=== PATIENT | male | born 1990 | race Caucasian/White ===

== ENCOUNTER 2017-03-17 03:06 | Emergency (ER) | payer OTHER ==
[~2017-03-17] VITALS: Ht 188 cm; Wt 88.6 kg
[2017-03-17 03:08] VITALS: BP 120/84; PULSE 82; RESP 16; O2SAT 96
--- NOTE | 2017-03-17 03:33 | ED.REPORT ---
HPI-Extremity Problem Upper Date of Service Mar 17, 2017 ED Provider: Andres Pascual MD A 26 year old male with no pertinent medical history presents to the ED complaining of a puncture wound to his right palm. The pt was jumping over a chain link fence this evening when a sharp piece of the fence punctured his hand. No other trauma is reported. The pt is not up to date on his tetanus. Nursing Notes Stated Complaint: PUNCTURE WOUND TO RIGHT PALM Chief Complaint: Laceration Nursing Notes Reviewed: Yes Allergies: Coded Allergies: No Known Allergies (Unverified , 03/17/17) General Time Seen by MD: 03:32 Chief Complaint Hand injury right Hx Obtained From: Patient Arrived By: Walk-in Onset Occurred: 1 - 4 hours ago Symptom Duration: Since onset Recent Healthcare: No recent doctor visit, No recent hospitalization Similar Sx Previous: No Past Medical History Past Medical History none reported Past Surgical History none reported Smoking History Unknown if Ever Smoker Social History Other Social History: Good social support Ambulatory Status Independent Review of Systems Musculoskeletal: Reports: Extremity pain, Denies: Neck pain Skin: Denies Rash Complete sys rev & neg: except as marked. Respiratory: Denies: Non-productive cough, Shortness of breath Cardiovascular: Denies: Chest pain GI: Denies: Abdominal pain, Vomiting Physical Exam Initial Vital Signs Vital Signs (First) Date Time Temp Pulse Resp B/P Pulse Ox O2 Delivery O2 Flow Rate FiO2 03/17/17 03:08 36.8 82 16 120/84 96 Room Air Initial VS: Reviewed General/Constitutional: Awake, Alert Neck: Atraumatic, Supple, Full range of motion Respiratory / Chest: Atraumatic, Breath sounds NL, Breath sounds = bilat, No respiratory distress Cardiovascular: Heart rate NL, Regular rhythm, Heart sounds NL Upper Extremity / MS: Atraumatic, Full range of motion Wrist / Hand: Neurologic intact, Vascular intact small puncture wound between the thenar and hypothenar eminences hemostatic small flap of skin that pt has debrided under direction Skin: Color NL, No rash, Warm, Dry Neurologic: Oriented X3, Speech NL, No motor deficits, No sensory deficits Head / Eyes: Atraumatic, Normocephalic, PERRL, EOMI ENT: Atraumatic, Airway patent, Mucous membranes moist Abdomen: Atraumatic, Soft, Non-tender Back: Atraumatic, Full range of motion Lower Extremity / Pelvis / MS: Atraumatic, Full range of motion Psychiatric: Affect NL, Mood NL Re-Eval/Medical Decision Med Decision/Clinical Course 26-year-old [employer] sustaining a puncture wound in his palm jumping over a chain-link fence. The wound appears fairly superficial and was cleansed thoroughly. Bacitracin applied. Tetanus updated. Small mehdi of devitalized skin debrided off bluntly. Discharged in stable condition. Re-Evaluation/Progress : Time of Eval: 03:32 Patient Status: Condition improved Re-Evaluation/Progress Note: Pt informed of the diagnosis and plan for admission during the initial interview. The pt understands and agrees with the plan. All questions are addressed at this time. Counseled Regarding: Diagnosis, Need for follow-up, When/why to return to ED Discharge & Departure Impression: Primary Impression: Puncture wound Disposition: Home Discharge Condition All VS Reviewed: Yes Condition: Stable Patient Instructions: Puncture Wound (ED) Additional Instructions: Keep a fresh bacitracin bandage over the wound until healed. Change at least three times daily. Your tetanus was updated today. Return if any signs of infection excessive swelling, discharge, pus, redness. Follow-up with your doctor in the office as needed. Referrals: Jossue Gaviria Attestation Portions of this note were transcribed by Hayden Murphy. I, Dr. Pascual personally performed the history, physical exam and medical decision-making; I reviewed and confirmed the accuracy of the information in the transcribed note. copies to: Jossue Gaviria Christopher W MD Mar 17, 2017 03:33 HAYDEN MURPHY Mar 17, 2017 03:42
[2017-03-17] MEDS ORDERED: TdaP Vaccine 0.5 mL Inj IM ONE ×2 (03:40→03:45)
== END 2017-03-17 03:57 | disposition home or self-care (01) ==
LOC: SED 03:47
DX: S61.431A Puncture wound without foreign body of right hand, initial encounter (principal); W26.8XXA Contact with other sharp object(s), not elsewhere classified, initial encounter; Y93.39 Activity, other involving climbing, rappelling and jumping off; Y92.69 Other specified industrial and construction area as the place of occurrence of the external cause; Y99.0 Civilian activity done for income or pay; Z23 Encounter for immunization